=== PATIENT | female | born 1970 | race Two or more races ===

== ENCOUNTER 2025-01-07 05:48 | Emergency (ER) | payer MEDICAID, OTHER ==
[~2025-01-07] VITALS: Ht 167.6 cm; Wt 94.1 kg
--- NOTE | 2025-01-07 08:11 | ED.PDOC ---
GI ASSESSMENT HPI Comments 54 year old female presents to the ED with chief complaint of abdominal pain. Patient reports that she has been experiencing epigastric abdominal pain with associated nausea and bloating since yesterday afternoon after eating beef stew. Patient denies any vomiting, diarrhea, dysuria, chest pain, fever, or chills. Chief Complaint: Abdominal Pain Time Seen by MD: 08:11 Primary Care Provider: Dr. 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 Family History Family History: Reviewed,noncontributory to illness Social History Smoker: Non-Smoker Alcohol: Denies ETOH Use Drugs: Denies Drug Use Lives In: Home Constitutional: denies: chills, diaphoresis, fatigue, fever, malaise, sweats, weakness, others EENTM: denies: blurred vision, double vision, ear bleeding, ear discharge, ear drainage, ear pain, ear ringing, eye pain, eye redness, hearing loss, mouth pain, mouth swelling, nasal discharge, nose bleeding, nose congestion, nose pain, photophobia, tearing, throat pain, throat swelling, voice changes, others Respiratory: denies: cough, hemoptysis, orthopnea, SOB at rest, shortness of breath, SOB with excertion, stridor, wheezing, others Cardiovascular: denies: chest pain, dizzy spells, diaphoresis, Dyspnea on exertion, edema, irregular heart beat, left arm pain, lightheadedness, palpitations, PND, syncope, others Gastrointestinal: reports: abdominal pain, nausea; denies: abdomen distended, blood streaked bowels, constipated, diarrhea, dysphagia, difficulty swallowing, hematemesis, melena, poor appetite, poor fluid intake, rectal bleeding, rectal pain, vomiting, others Genitourinary: denies: abnormal vagina bleeding, burning, dyspareunia, dysuria, flank pain, frequency, hematuria, incontinence, pain, , vagina discharge, urgency, others Neurological: denies: dizziness, fainting, headache, left sided numbness, left sided weakness, numbness, paresthesia, pre-existing deficit, right sided numbness, right sided weakness, seizure, speech problems, tingling, tremors, weakness, others Musculoskeletal: denies: back pain, gout, joint pain, joint swelling, muscle pain, muscle stiffness, neck pain, others Integumetry: denies: bruises, change in color, change in hair/nails, dryness, laceration, lesions, lumps, rash, wounds, others Allergic/Immunocompromised: denies: Difficulty Healing, Frequent Infections, Hives, Itching, others Hematologic/Lymphatic: denies: anemia, blood clots, easy bleeding, easy bruising, swollen glands, others Endocrine: denies: excessive hunger, excessive sweating, excessive thirst, excessive urination, flushing, intolerance to cold, intolerance to heat, unexplained weight gain, unexplained weight loss, others Psychiatric: denies: anxiety, bipolar disorder, depression, hopeless, panic disorder, schizophrenia, sleepless, suicidal, others All Other Systems: Reviewed and Negative Physical Exam General Appearance: Moderate Distress, Obese HEENT: Normal ENT Inspection, PERRL/EOMI Neck: Full Range of Motion, Non-Tender, Normal, Normal Inspection Respiratory: Chest Non-Tender, Lungs Clear, No Accessory Muscle Use, No Respiratory Distress, Normal Breath Sounds Cardiovascular: No Edema, No JVD, No Murmur, No Gallop, Normal Peripheral Pulses, Regular Rate/Rhythm Breast Exam: Deferred Gastrointestinal: Epigastric, No Organomegaly, No Pulsatile Mass, Normal Bowel Sounds, RUQ, Soft, Tenderness Genitalia: Deferred Pelvic: Deferred Rectal: Deferred Extremities: No calf tenderness, Normal capillary refill, Normal inspection, Normal range of motion, Non-tender, No pedal edema Musculoskeletal : Apperance: Normal Neurologic: Alert, 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 Was a procedure done?: No GI differential Dx Differential Diagnosis: Appendicitis, Bowel Obstruction, Cholecystitis, Diverticular disease, Gastritis/PUD, Inflammatory BD, Pancreatitis, UTI, Dehydration, Diabetes/ DKA, Drug toxicity, Electrolyte Imbalance, Anemia X-Ray, Labs, Meds, VS Vital Signs Date Time Temp Pulse Resp B/P (MAP) Pulse Ox O2 Delivery O2 Flow Rate FiO2 01/07/25 08:17 71 20 96 Room Air* 0 21 01/07/25 08:17 98.5 71 20 117/63 (81) 96 98.5 01/07/25 05:57 97.5 77 16 130/78 (95) 95 97.5 Lab Test 01/07/25 08:24 01/07/25 05:57 Range/Units White Blood Count 6.1 4.4-10.8 10^3/uL Red Blood Count 5.02 4.0-5.20 10^6/uL Hemoglobin 14.5 12.2-16.2 g/dL Hematocrit 43.7 36.0-46.0 % Mean Corpuscular Volume 87.2 80.0-100.0 fL Mean Corpuscular Hemoglobin 28.9 28.0-32.0 pg Mean Corpuscular Hemoglobin Concent 33.1 32.0-36.0 g/dL Red Cell Distribution Width 13.2 11.8-14.3 % Platelet Count 237 140-450 10^3/uL Mean Platelet Volume 7.4 6.9-10.8 fL Neutrophils (%) (Auto) 67.6 37.0-80.0 % Lymphocytes (%) (Auto) 24.8 10.0-50.0 % Monocytes (%) (Auto) 4.7 0.0-12.0 % Eosinophils (%) (Auto) 1.8 0.0-7.0 % Basophils (%) (Auto) 1.1 0.0-2.0 % Neutrophils # (Auto) 4.2 1.6-8.6 10 ^3/uL Lymphocytes # (Auto) 1.5 0.4-5.4 10 ^3/uL Monocytes # (Auto) 0.3 0-1.3 10 ^3/uL Eosinophils # (Auto) 0.1 0-0.8 10 ^3/uL Basophils # (Auto) 0.1 0-0.2 10 ^3/uL Nucleated Red Blood Cells 0.1 % Sodium Level 139 136-145 mmol/L Potassium Level 4.7 3.5-5.1 mmol/L Chloride Level 106 98-107 mmol/L Carbon Dioxide Level 25 20-31 mmol/L Anion Gap 8 5-15 Blood Urea Nitrogen 12 9-23 mg/dL Creatinine 0.67 0.550-1.02 mg/dL Glomerular Filtration Rate Calc 103 >90 mL/min BUN/Creatinine Ratio 17.9 10.0-20.0 Serum Glucose 118 H 74-106 mg/dL Calcium Level 9.8 8.7-10.4 mg/dL Magnesium Level 2.1 1.6-2.6 mg/dL Total Bilirubin 0.4 0.2-1.0 mg/dL Aspartate Amino Transferase (AST) 35 13-40 U/L Alanine Aminotransferase (ALT) 55 H 7-40 U/L Alkaline Phosphatase 108 46-116 U/L Total Protein 7.6 5.7-8.2 g/dL Albumin 4.8 3.2-4.8 g/dL Lipase 43 12-53 U/L Urine Color Light-yellow Yellow Urine Clarity Clear Clear Urine pH 5.0 5.0-9.0 Urine Specific [place] 1.026 1.001-1.035 Urine Protein Negative Negative Urine Ketones Negative Negative Urine Blood Negative Negative /uL Urine Nitrite Negative Negative Urine Bilirubin Negative Negative Urine Urobilinogen Normal Negative mg/dL Urine Leukocyte Esterase Negative Negative /uL Urine RBC 2 0 - 4 /hpf Urine Microscopic WBC 3 0-5 /HPF Urine Squamous Epithelial Cells Few <5 /hpf Urine Calcium Oxalate Crystals Few None Seen Urine Bacteria None seen None Seen /hpf Urine Glucose Normal Normal mg/dL Current Medications Medications (Trade) Dose Ordered Sig/Stefani Route Start Time Stop Time Status Last Admin Metoclopramide HCl (Reglan Injection) 10 mg ONCE ONCE IV 01/07/25 08:15 01/07/25 08:16 DC 01/07/25 08:45 Sodium Chloride 1,000 ml @ 150 mls/hr Q6H40M ONCE IV 01/07/25 08:15 01/07/25 14:54 01/07/25 08:44 Ketorolac Tromethamine (Toradol Injection) 30 mg ONCE ONCE IV 01/07/25 08:15 01/07/25 08:16 DC 01/07/25 08:44 Abd US: FINDINGS: The liver demonstrates increased echotexture without focal mass lesions. Liver measures 15.5 cm in length. There is hepatopedal color doppler flow in the main portal vein. There is no intrahepatic biliary ductal dilatation. Multiple gallstones. Gallbladder wall is normal in thickness measuring 0.2 cm. No pericholecystic free fluid. Negative sonographic miranda's sign. The common bile duct measures 0.4 cm. The right kidney measures 10.1 cm. The right kidney is normal in contour, size, and shape. The echogenicity is normal. There is no hydronephrosis. The pancreas is not well visualized due to overlying bowel gas. Visualized portions of the aorta and inferior vena cava are unremarkable. No evidence of ascites. IMPRESSION: 1. Gallstones. No sonographic evidence of acute cholecystitis. 2. Hepatic steatosis. X-Ray, Labs, Meds, VS Comment Course in the emergency department patient came in complaining of abdominal pain mostly right upper quadrant and epigastrium Patient with a history of fatty liver and past surgery of hip hysterectomy CBC normal Urine negative Magnesium 2.1 Lipase 43 Ultrasound abdomen shows cholelithiasis without cholecystitis Patient will be discharged home to follow up with her PCP Time of 1ST Reevaluation: 09:10 Reevaluation 1ST: Improved Patient Education/Counseling: Diagnosis, Treatment Family Education/Counseling: No Family Present Departure 1 Departure Time of Disposition: 10:17 Impression: Primary Impression: Cholelithiasis Qualified Codes: K80.20 - Calculus of gallbladder without cholecystitis without obstruction Additional Impression: Biliary colic symptom Disposition: HOME / SELF CARE / HOMELESS Condition: Fair Additional Instructions: Push fluids and follow up with your PCP e-Prescriptions Omeprazole (Gnp Omeprazole) 20 Mg Tab 1 TAB PO BID for 10 Days, #20 TAB 1 Refill Prov: STEPHAN SOSA MD 01/07/25 Metoclopramide Hcl (Reglan) 10 Mg Tab 10 MG PO BID for 10 Days, #20 TAB Prov: STEPHAN SOSA MD 01/07/25 Discharged With: Self Critical Care Note Critical Care Time?: No Stability Stability form required: No Heart Score Heart Score: Heart Score Response (Comments) Value History N/A 0 EKG N/A 0 Age 45-64 1 Risk Factors No known risk factors 0 Troponin N/A 0 Total 1 I personally scribed for STEPHAN SOSA MD ([email or web address]) on 01/07/25 at 08:11. Electronically submitted by Honorio Ventura ([email or web address]). I personally scribed for STEPHAN SOSA MD ([email or web address]) on 01/07/25 at 09:24. Electronically submitted by Honorio Ventura ([email or web address]). STEPHAN SOSA MD Jan 07, 2025 08:11
[2025-01-07 08:17] VITALS: PULSE 71; RESP 20; O2SAT 96
[2025-01-07 08:19] LABS: Urine Bacteria None Seen /hpf (None Seen)
[2025-01-07 08:37] LABS: Basophils # (auto) 0.1 10 ^3/uL (0-0.2); Basophils % (auto) 1.1 % (0.0-2.0); Eosinophils # (auto) 0.1 10 ^3/uL (0-0.8); Eosinophils % (auto) 1.8 % (0.0-7.0); Hematocrit 43.7 % (36.0-46.0); Hemoglobin 14.5 g/dL (12.2-16.2); Lymphocytes # (auto) 1.5 10 ^3/uL (0.4-5.4); Lymphocytes % (auto) 24.8 % (10.0-50.0); Mean Corpuscular Hemoglobin 28.9 pg (28.0-32.0); Mean Corpuscular Hgb Conc. 33.1 g/dL (32.0-36.0); Mean Corpuscular Volume 87.2 fL (80.0-100.0); Monocytes # (auto) 0.3 10 ^3/uL (0-1.3); Monocytes % (auto) 4.7 % (0.0-12.0); Neutrophils # (auto) 4.2 10 ^3/uL (1.6-8.6); Neutrophils % (auto) 67.6 % (37.0-80.0); Nucleated Red Blood Cells % 0.1 %; Platelet Count (auto) 237 10^3/uL (140-450); Red Blood Cells 5.02 10^6/uL (4.0-5.20); Red Cell Distribution Width 13.2 % (11.8-14.3); White Blood Cell 6.1 10^3/uL (4.4-10.8)
[2025-01-07 08:43] LABS: Urine Blood Negative /uL (Negative); Urine Clarity Clear (Clear); Urine Color Light-Yellow (Yellow); Urine Protein, UAD Negative (Negative); Urine Specific Gravity 1.026 (1.001-1.035); Urine Squamous Epithelial Cell FEW /hpf (<5); Urine Urobilinogen Normal (Negative); Urine WBC 3 /HPF (0-5)
[2025-01-07] MEDS: KETOROLAC TROMETH 30 MG/ML 1ML VIAL IV ONE (08:44)
[2025-01-07] MEDS: SODIUM CHLORIDE 0.9% 1,000 ML IV ONE (08:44)
[2025-01-07] MEDS: METOCLOPRAMIDE HCL 5MG/ml INJ 2ml VIAL IV ONE (08:45)
[2025-01-07 08:54] LABS: Alkaline Phosphatase 108 U/L (46-116); Anion Gap 8 (5-15); Aspartate Aminotransferase 35 U/L (13-40); BUN/Creatinine Ratio 17.9 (10.0-20.0); Bilirubin, Total 0.4 mg/dL (0.2-1.0); Blood Urea Nitrogen 12 mg/dL (9-23); Calcium 9.8 mg/dL (8.7-10.4); Carbon Dioxide 25 mmol/L (20-31); Chloride 106 mmol/L (98-107); Lipase 43 U/L (12-53); Magnesium 2.1 mg/dL (1.6-2.6); Potassium 4.7 mmol/L (3.5-5.1); Sodium 139 mmol/L (136-145); Total Protein 7.6 g/dL (5.7-8.2)
[2025-01-07 08:55] LABS: Alanine Aminotransferase 55 U/L (7-40); Albumin 4.8 g/dL (3.2-4.8); Glucose 118 mg/dL (74-106)
--- NOTE | 2025-01-07 09:20 | DVH ---
EXAM: US GALLBLADDER INDICATION: Acute abdominal pain TECHNIQUE: Multiple real-time sonographic images were obtained of the right upper quadrant. COMPARISON: None FINDINGS: The liver demonstrates increased echotexture without focal mass lesions. Liver measures 15. 5 cm in length. There is hepatopedal color doppler flow in the main portal vein. There is no intrahep atic biliary ductal dilatation. Multiple gallstones. Gallbladder wall is normal in thickness measuring 0.2 cm. No pericholecystic laura e fluid. Negative sonographic miranda's sign. The common bile duct measures 0.4 cm. The right kidney measures 10.1 cm. The right kidney is normal in contour, size, and shape. The ech ogenicity is normal. There is no hydronephrosis. The pancreas is not well visualized due to overlying bowel gas. Visualized portions of the aorta and inferior vena cava are unremarkable. No evidence of ascites. IMPRESSION: 1. Gallstones. No sonographic evidence of acute cholecystitis. 2. Hepatic steatosis.
[2025-01-07] MEDS ORDERED: METO-281 PO (10:23)
[2025-01-07] MEDS ORDERED: OMEP20TA PO (10:23)
[2025-01-07 10:32] VITALS: BP 111/59; PULSE 75; RESP 16; TEMP 98; O2SAT 97
== END 2025-01-07 10:47 | disposition home or self-care (01) ==
LOC: ER 05:48
DX: K80.20 Calculus of gallbladder without cholecystitis without obstruction (principal); K80.50 Calculus of bile duct without cholangitis or cholecystitis without obstruction; K76.0 Fatty (change of) liver, not elsewhere classified; Z90.710 Acquired absence of both cervix and uterus; Z79.899 Other long term (current) drug therapy
CPT/HCPCS: 36415; 76705; 80053; 81001; 83690; 83735; 85025; 96361; 96374; 96375; 99285; J1885; J2765; J7030

== ENCOUNTER 2025-05-20 01:02 | Inpatient (IN) | payer MEDICAID ==
[~2025-05-20] VITALS: Ht 162.6 cm; Wt 91.6 kg
[~2025-05-20 01:02] MED LIST: METO-281 PO; OMEP20TA PO
--- NOTE | 2025-05-20 01:25 | ED.PDOC ---
GI ASSESSMENT HPI Comments 54 year old female presents to the ED with a chief complaint of abdominal pain onset 1 day. Patient states she has been experiencing RUQ pain for the past day, took ibuprofen with no improvement of symptoms. Patient has a PMHx gallstones, has surgery scheduled in [place] on 06/05/25. Denies fever, chills, nausea, vomiting, diarrhea, headache, dizziness, hematemesis, dysuria, hematuria. No other symptoms or modifying factors present at this time. Chief Complaint: Abdominal Pain Time Seen by MD: 01:15 Primary Care Provider: Dr. Engle Reviewed Notes: Medications, Allergies Allergies: Coded Allergies: NO KNOWN ALLERGIES (Unverified , 01/07/25) Home Meds Active Scripts Omeprazole (Gnp Omeprazole) 20 Mg Tab, 1 TAB PO BID for 10 Days, #20 TAB 1 Refill Prov:STEPHAN SOSA MD 01/07/25 Metoclopramide Hcl (Reglan) 10 Mg Tab, 10 MG PO BID for 10 Days, #20 TAB Prov:STEPHAN SOSA MD 01/07/25 Information Source: Patient Mode of Arrival: Ambulatory Timing: Days Duration: Since onset Prehospital treatment: Pain Meds Quality: Sharp Vomitus: None Severity: Moderate Recent: None Recent Hx of: None Pain Location: RUQ Modifying Factors: Nothing Associated sign and symptoms: Abdominal Pain Past Medical History PAST MEDICAL HISTORY: Gallstones Surgical History: 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 Family History Family History: Reviewed,noncontributory to illness Social History Smoker: Non-Smoker Alcohol: Denies ETOH Use Drugs: Denies Drug Use Lives In: Home Constitutional: denies: chills, diaphoresis, fatigue, fever, malaise, sweats, weakness, others EENTM: denies: blurred vision, double vision, ear bleeding, ear discharge, ear drainage, ear pain, ear ringing, eye pain, eye redness, hearing loss, mouth pain, mouth swelling, nasal discharge, nose bleeding, nose congestion, nose pain, photophobia, tearing, throat pain, throat swelling, voice changes, others Respiratory: denies: cough, hemoptysis, orthopnea, SOB at rest, shortness of breath, SOB with excertion, stridor, wheezing, others Cardiovascular: denies: chest pain, dizzy spells, diaphoresis, Dyspnea on exertion, edema, irregular heart beat, left arm pain, lightheadedness, palpitations, PND, syncope, others Gastrointestinal: reports: abdominal pain (RUQ); denies: abdomen distended, blood streaked bowels, constipated, diarrhea, dysphagia, difficulty swallowing, hematemesis, melena, nausea, poor appetite, poor fluid intake, rectal bleeding, rectal pain, vomiting, others Genitourinary: denies: abnormal vagina bleeding, burning, dyspareunia, dysuria, flank pain, frequency, hematuria, incontinence, pain, , vagina discharge, urgency, others Neurological: denies: dizziness, fainting, headache, left sided numbness, left sided weakness, numbness, paresthesia, pre-existing deficit, right sided numbness, right sided weakness, seizure, speech problems, tingling, tremors, weakness, others Musculoskeletal: denies: back pain, gout, joint pain, joint swelling, muscle pain, muscle stiffness, neck pain, others Integumetry: denies: bruises, change in color, change in hair/nails, dryness, laceration, lesions, lumps, rash, wounds, others Allergic/Immunocompromised: denies: Difficulty Healing, Frequent Infections, Hives, Itching, others Hematologic/Lymphatic: denies: anemia, blood clots, easy bleeding, easy bruising, swollen glands, others Endocrine: denies: excessive hunger, excessive sweating, excessive thirst, excessive urination, flushing, intolerance to cold, intolerance to heat, unexplained weight gain, unexplained weight loss, others Psychiatric: denies: anxiety, bipolar disorder, depression, hopeless, panic disorder, schizophrenia, sleepless, suicidal, others All Other Systems: Reviewed and Negative Physical Exam General Appearance: Normal HEENT: Normal ENT Inspection, Pharynx Normal, TMs Normal Neck: Full Range of Motion, Non-Tender, Normal, Normal Inspection Respiratory: Chest Non-Tender, Lungs Clear, No Accessory Muscle Use, No Respiratory Distress, Normal Breath Sounds Cardiovascular: No Edema, No JVD, No Murmur, No Gallop, Normal Peripheral Pulses, Regular Rate/Rhythm Breast Exam: Deferred Gastrointestinal: No Organomegaly, Normal Bowel Sounds, Tenderness (RUQ) Genitalia: Deferred Pelvic: Deferred Rectal: Deferred Extremities: No calf tenderness, Normal capillary refill, Normal inspection, Normal range of motion, Non-tender, No pedal edema Musculoskeletal : Apperance: Normal Neurologic: Alert, 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 Was a procedure done?: No GI differential Dx Differential Diagnosis: Appendicitis, Cholecystitis, Gastritis/PUD, Gastroenteritis, Pancreatitis, Urolithiasis, Dehydration, Food Poisoning X-Ray, Labs, Meds, VS Vital Signs Date Time Temp Pulse Resp B/P (MAP) Pulse Ox O2 Delivery O2 Flow Rate FiO2 05/20/25 04:34 64 16 158/88 05/20/25 04:07 97.7 64 16 158/88 (111) 96 97.7 05/20/25 01:03 97.5 66 66 158/84 98 97.5 Lab Test 05/20/25 01:27 Range/Units White Blood Count 6.1 4.4-10.8 10^3/uL Red Blood Count 4.90 4.0-5.20 10^6/uL Hemoglobin 14.6 12.2-16.2 g/dL Hematocrit 44.2 36.0-46.0 % Mean Corpuscular Volume 90.1 80.0-100.0 fL Mean Corpuscular Hemoglobin 29.8 28.0-32.0 pg Mean Corpuscular Hemoglobin Concent 33.1 32.0-36.0 g/dL Red Cell Distribution Width 13.6 11.8-14.3 % Platelet Count 255 140-450 10^3/uL Mean Platelet Volume 8.2 6.9-10.8 fL Neutrophils (%) (Auto) 45.9 37.0-80.0 % Lymphocytes (%) (Auto) 45.8 10.0-50.0 % Monocytes (%) (Auto) 4.6 0.0-12.0 % Eosinophils (%) (Auto) 2.6 0.0-7.0 % Basophils (%) (Auto) 1.1 0.0-2.0 % Neutrophils # (Auto) 2.8 1.6-8.6 10 ^3/uL Lymphocytes # (Auto) 2.8 0.4-5.4 10 ^3/uL Monocytes # (Auto) 0.3 0-1.3 10 ^3/uL Eosinophils # (Auto) 0.2 0-0.8 10 ^3/uL Basophils # (Auto) 0.1 0-0.2 10 ^3/uL Nucleated Red Blood Cells 0.2 % Sodium Level 141 136-145 mmol/L Potassium Level 4.4 3.5-5.1 mmol/L Chloride Level 109 H 98-107 mmol/L Carbon Dioxide Level 20 20-31 mmol/L Anion Gap 12 5-15 Blood Urea Nitrogen 6 L 9-23 mg/dL Creatinine 0.76 0.550-1.02 mg/dL Glomerular Filtration Rate Calc 92 >90 mL/min BUN/Creatinine Ratio 7.9 L 10.0-20.0 Serum Glucose 133 H 74-106 mg/dL Calcium Level 9.5 8.7-10.4 mg/dL Total Bilirubin 0.4 0.2-1.0 mg/dL Aspartate Amino Transferase (AST) 34 13-40 U/L Alanine Aminotransferase (ALT) 39 7-40 U/L Alkaline Phosphatase 108 46-116 U/L Total Protein 8.0 5.7-8.2 g/dL Albumin 4.9 H 3.2-4.8 g/dL Lipase 40 12-53 U/L Current Medications Medications (Trade) Dose Ordered Sig/Stefani Route Start Time Stop Time Status Last Admin Sodium Chloride 1,000 ml @ 1,000 mls/hr Q1H ONCE IV 05/20/25 01:15 05/20/25 02:14 DC 05/20/25 04:34 Morphine Sulfate 4 mg ONCE ONCE IV 05/20/25 01:15 05/20/25 01:17 DC 05/20/25 04:34 Ondansetron HCl (Zofran) 4 mg ONCE ONCE IV 05/20/25 01:15 05/20/25 01:17 DC 05/20/25 04:34 Time of 1ST Reevaluation: 01:45 Reevaluation 1ST: Unchanged Patient Education/Counseling: Diagnosis, Treatment, Prognosis Family Education/Counseling: No Family Present SEPSIS Sepsis Screen Date sepsis recognized/suspect: May 20, 2025 Time Sepsis recognized/suspect: 010 Recent Procedure: No On Antibiotic Therapy: No Respiratory Rate >20: No Heart Rate >90: No Temp<36 C (96.8 F) or >38.3 C: No SBP <90 or MAP <65 mmHG: No New Acute Mental Status Change: No Is the patient on CPAP, BIPAP,: No Physician Orders Urinalysis (05/20/25 01:15) Ct Ab Pel With Iv Con Only (05/20/25 01:15) Morphine Sulfate Injection (05/20/25 04:45) Ondansetron Hcl (Zofran) (05/20/25 04:45) Vital Signs Date Time Temp Pulse Resp B/P (MAP) Pulse Ox O2 Delivery O2 Flow Rate FiO2 05/20/25 04:34 64 16 158/88 05/20/25 04:07 97.7 64 16 158/88 (111) 96 97.7 05/20/25 01:03 97.5 66 66 158/84 98 97.5 Laboratory Tests Test 05/20/25 01:27 White Blood Count 6.1 10^3/uL (4.4-10.8) Medications Medications Dose Ordered Sig/Stefani Route Start Time Stop Time Status Last Admin Dose Admin Morphine Sulfate 4 mg ONCE ONCE IV 05/20/25 01:15 05/20/25 01:17 DC 05/20/25 04:34 Ondansetron HCl 4 mg ONCE ONCE IV 05/20/25 01:15 05/20/25 01:17 DC 05/20/25 04:34 Sodium Chloride 1,000 ml @ 1,000 mls/hr Q1H ONCE IV 05/20/25 01:15 05/20/25 02:14 DC 05/20/25 04:34 Departure 1 Departure Time of Disposition: 04:46 (Patient presented with abdominal pain that was concerning for possible appendicits, gastritis, cholecystitis, colitis, gastroenteritis, sbo, or orther possible surgical emergency. Data: 1. I ordered and reviewed the result of at least 3 labs including a CBC, BMP, and Urinalysis. 2. I independently interpreted the following tests: CT Abdoment and Pelvis is concerning for distended gallbladder and colitis .Risk:This patient has a high risk of morbidity due to further diagnostic testing or treatment and may suffer from an acute abdominal process disorder. Workup reveals likely biliary colic and intractable abdominal pain and patient should be admitted for further workup. and possible expert consultation. ) Impression: Primary Impression: Biliary colic symptom Additional Impression: Intractable abdominal pain Disposition: ADMITTED INPATIENT Admit to: Med Surg Condition: Serious Critical Care Note Critical Care Time?: Yes Critical care comment: Intractable abdominal pain Authorized and Performed by: Maki Oconnor MD Total critical care time: Approximately 38 minutes Due to a high probability of clinically significant, life threatening deterioration, the patient required my highest level of preparedness to intervene emergently and I personally spent this critical care time directly and personally managing the patient. This critical care time included obtaining a history; examining the patient; pulse oximetry; ordering and review of studies; arranging urgent treatment with development of a management plan; evaluation of patient's response to treatment; frequent reassessment; and, discussions with other providers. This critical care time was performed to assess and manage the high probability of imminent, life-threatening deterioration that could result in multi-organ failure. It was exclusive of separately billable procedures and treating other patients and teaching time. Please see my other sections and the rest of the note for further information on patient assessment and treatment. Stability Stability form required: No I personally scribed for MAKI OCONNOR MD ([email or web address]) on 05/20/25 at 01:25. Electronically submitted by Skylar Marquez ([email or web address]). MAKI OCONNOR MD May 20, 2025 01:25
[2025-05-20 01:38] LABS: Hematocrit 44.2 % (36.0-46.0); Hemoglobin 14.6 g/dL (12.2-16.2); Mean Corpuscular Hemoglobin 29.8 pg (28.0-32.0); Mean Corpuscular Volume 90.1 fL (80.0-100.0); Nucleated Red Blood Cells % 0.2 %
[2025-05-20 02:01] LABS: Alanine Aminotransferase 39 U/L (7-40); Alkaline Phosphatase 108 U/L (46-116); Anion Gap 12 (5-15); BUN/Creatinine Ratio 7.9 (10.0-20.0); Bilirubin, Total 0.4 mg/dL (0.2-1.0); Calcium 9.5 mg/dL (8.7-10.4); Carbon Dioxide 20 mmol/L (20-31); Lipase 40 U/L (12-53); Potassium 4.4 mmol/L (3.5-5.1); Sodium 141 mmol/L (136-145); Total Protein 8.0 g/dL (5.7-8.2)
[2025-05-20 02:04] LABS: Albumin 4.9 g/dL (3.2-4.8); Blood Urea Nitrogen 6 mg/dL (9-23); Chloride 109 mmol/L (98-107); Glucose 133 mg/dL (74-106)
[2025-05-20] MEDS: IOHEXOL 300 MG/ML 100ML BOTTLE IJ ONE (04:33)
[2025-05-20] MEDS: ONDANSETRON HCL 4 MG/2 ML VIAL IV ONE ×2 (04:34→06:03)
[2025-05-20] MEDS: MORPHINE SULFATE 4 MG/ML SYR/VIAL IV ONE ×2 (04:34→06:03)
[2025-05-20] MEDS: SODIUM CHLORIDE 0.9% 1,000 ML IV ONE (04:34)
--- NOTE | 2025-05-20 04:39 | DVH ---
Exam: CT CT AB PEL WITH IV CON ONLY History: ruq pain Comparison Study: Right upper quadrant ultrasound performed 01/07/2025 Technique: Multidetector spiral CT of the abdomen was performed from lung bases to pubic symphysis. A xial imaging was performed with intravenous contrast following the uneventful administration of 95 ml Omnipaque 300. Coronal and sagittal multiplanar reformats were obtained from the axial data set by maikel roberson technologist. Radiation Dose : 1. Abdomen/Pelvis: CTDIvol 22.9 mGy, DLP 1213.96 mGy*cm. Findings: Lung Bases: Lung bases are clear. Visualized portions of the heart and pericardium are unremarkable. Liver: The liver is normal in size. No focal lesions. Diffusely hypoattenuating liver parenchyma con sistent with hepatic steatosis. Gallbladder and Biliary Tree: The gallbladder is slightly distended. No intrahepatic or extrahepatic biliary ductal dilatation. Spleen: Unremarkable Pancreas: The pancreas enhances normally and there are no focal lesions. The main pancreatic duct is not dilated Adrenal Glands: Unremarkable Kidneys: Kidneys enhance symmetrically. No calculi or hydronephrosis. GI tract: The stomach is grossly normal in appearance. Nonspecific fluid-filled small bowel loops. Mild mucosal thickening of the colon. No bowel obstruction. No acute appendicitis. Peritoneum/mesentery/retroperitoneum. No evidence of free intraperitoneal air. No ascites. No evidenc e of suspicious lymphadenopathy. Abdominal Wall: Unremarkable. Vasculature: Abdominal aorta and main branches are unremarkable. Normal vascular enhancement. Urinary Bladder: Grossly unremarkable for degree of distention. Pelvic Organs: Unremarkable Musculoskeletal: No aggressive focal bony lesions, acute fractures or dislocation. Intervertebral dis c degeneration at L5-S1. IMPRESSION: 1. Acute enterocolitis. 2. Hepatic steatosis. 3. Slightly distended gallbladder without inflammatory changes. Right upper quadrant ultrasound earnest mmended for further evaluation.
[2025-05-20] MEDS ORDERED: DOCUSATE SOD 100 MG CAP PO PRN (08:00)
[2025-05-20] MEDS: SODIUM CHLORIDE 0.9% 1,000 ML IV SCH (08:00)
[2025-05-20] MEDS ORDERED: ONDANSETRON HCL 4 MG/2 ML VIAL IV PRN (08:00)
[2025-05-20] MEDS ORDERED: ACETAMINOPHEN 325 MG TAB PO PRN (08:00)
--- NOTE | 2025-05-20 08:06 | DVHHP2 ---
History of Present Illness Reason for Visit: Abdominal pain History of Present Illness Esthela Lemons is a 54-year-old female with past medical history of gallstones, who came to the hospital due to abdominal pain. Patient is aware she has gallstones. She has been following outpatient for her care and has surgery scheduled on 06/05/2025. However, she came to the hospital due to the pain becoming too severe along with intractable nausea and vomiting. Patient states this time the pain, nausea, and vomiting began yesterday about 1500. She last ate yesterday about 1500. GI: Other (Gallstones) Past Surgical History: Hysterectomy Smoke: No ALCOHOL: none Drugs: None Lives: with Family Domestic Violence: Neg Review of Systems Constitutional: No: Fever, Chills, Sweats, Weakness, Malaise, Other Eyes: No: Pain, Vision change, Conjunctivae inflammation, Eyelid inflammation, Other, Redness ENT: No: Ear pain, Ear discharge, Nose pain, Nose discharge, Nose congestion, Mouth pain, Mouth swelling, Throat pain, Throat swelling, Other Respiratory: No: Cough, Dry, Shortness of breath, SOB with excertion, Wheezing, Hemoptysis, Pleuritic Pain, Sputum, Wheezing, Other Cardiovascular: No: Chest Pain, Palpitations, Orthopnea, Paroxysmal Noc. Dyspnea, Edema, Lt Headedness, Other Gastrointestinal: Nausea, Vomiting, Abdominal Pain; No: Diarrhea, Constipation, Melena, Hematochezia, Other Genitourinary: No Dysuria, No Frequency, No Incontinence, No Hematuria, No Retention, No Other Musculoskeletal: No: other, neck pain, shoulder pain, arm pain, back pain, hand pain, leg pain, foot pain Skin: No: Rash, Lesions, Jaundice, Bruising, Other Neurological: No: Weakness, Numbness, Incoordination, Change in speech, Confusion, Seizures, Other Allergies: Coded Allergies: NO KNOWN ALLERGIES (Unverified , 01/07/25) Exam Vital Signs Vital Signs Date Time Temp Pulse Resp B/P (MAP) Pulse Ox O2 Delivery O2 Flow Rate FiO2 05/20/25 06:57 62 18 148/78 05/20/25 04:07 97.7 96 97.7 General Appearance: Alert, Oriented X3, Cooperative, moderate distress HEENT: Atraumatic, PERRLA, Other (Mucous membr dry) Respiratory: Clear to auscultation, Normal air movement Cardiovascular: Regular rate, Normal S1, Normal S2 Abdominal: Normal bowel sounds, Soft, Other (epigastric pain that radiates to RUQ) Extremities: No clubbing, No cyanosis, No edema, Normal pulses, No tenderness/swelling Skin: No rashes, No breakdown, No significant lesion Neuro: Normal gait, Normal speech, Strength at 5/5 X4 ext, Normal tone Psych/Mental Status: Mental status NL, Mood NL Labs/Xrays Labs Test 05/20/25 01:27 Range/Units White Blood Count 6.1 4.4-10.8 10^3/uL Red Blood Count 4.90 4.0-5.20 10^6/uL Hemoglobin 14.6 12.2-16.2 g/dL Hematocrit 44.2 36.0-46.0 % Mean Corpuscular Volume 90.1 80.0-100.0 fL Mean Corpuscular Hemoglobin 29.8 28.0-32.0 pg Mean Corpuscular Hemoglobin Concent 33.1 32.0-36.0 g/dL Red Cell Distribution Width 13.6 11.8-14.3 % Platelet Count 255 140-450 10^3/uL Mean Platelet Volume 8.2 6.9-10.8 fL Neutrophils (%) (Auto) 45.9 37.0-80.0 % Lymphocytes (%) (Auto) 45.8 10.0-50.0 % Monocytes (%) (Auto) 4.6 0.0-12.0 % Eosinophils (%) (Auto) 2.6 0.0-7.0 % Basophils (%) (Auto) 1.1 0.0-2.0 % Neutrophils # (Auto) 2.8 1.6-8.6 10 ^3/uL Lymphocytes # (Auto) 2.8 0.4-5.4 10 ^3/uL Monocytes # (Auto) 0.3 0-1.3 10 ^3/uL Eosinophils # (Auto) 0.2 0-0.8 10 ^3/uL Basophils # (Auto) 0.1 0-0.2 10 ^3/uL Nucleated Red Blood Cells 0.2 % Sodium Level 141 136-145 mmol/L Potassium Level 4.4 3.5-5.1 mmol/L Chloride Level 109 H 98-107 mmol/L Carbon Dioxide Level 20 20-31 mmol/L Anion Gap 12 5-15 Blood Urea Nitrogen 6 L 9-23 mg/dL Creatinine 0.76 0.550-1.02 mg/dL Glomerular Filtration Rate Calc 92 >90 mL/min BUN/Creatinine Ratio 7.9 L 10.0-20.0 Serum Glucose 133 H 74-106 mg/dL Calcium Level 9.5 8.7-10.4 mg/dL Total Bilirubin 0.4 0.2-1.0 mg/dL Aspartate Amino Transferase (AST) 34 13-40 U/L Alanine Aminotransferase (ALT) 39 7-40 U/L Alkaline Phosphatase 108 46-116 U/L Total Protein 8.0 5.7-8.2 g/dL Albumin 4.9 H 3.2-4.8 g/dL Lipase 40 12-53 U/L Exam: CT CT AB PEL WITH IV CON ONLY History: ruq pain Comparison Study: Right upper quadrant ultrasound performed 01/07/2025 Technique: Multidetector spiral CT of the abdomen was performed from lung bases to pubic symphysis. Axial imaging was performed with intravenous contrast following the uneventful administration of 95 ml Omnipaque 300. Coronal and sagittal multiplanar reformats were obtained from the axial data set by the technologist. Radiation Dose : 1. Abdomen/Pelvis: CTDIvol 22.9 mGy, DLP 1213.96 mGy*cm. Findings: Lung Bases: Lung bases are clear. Visualized portions of the heart and pericardium are unremarkable. Liver: The liver is normal in size. No focal lesions. Diffusely hypoattenuating liver parenchyma consistent with hepatic steatosis. Gallbladder and Biliary Tree: The gallbladder is slightly distended. No intrahepatic or extrahepatic biliary ductal dilatation. Spleen: Unremarkable Pancreas: The pancreas enhances normally and there are no focal lesions. The main pancreatic duct is not dilated Adrenal Glands: Unremarkable Kidneys: Kidneys enhance symmetrically. No calculi or hydronephrosis. GI tract: The stomach is grossly normal in appearance. Nonspecific fluid-filled small bowel loops. Mild mucosal thickening of the colon. No bowel obstruction. No acute appendicitis. Peritoneum/mesentery/retroperitoneum. No evidence of free intraperitoneal air. No ascites. No evidence of suspicious lymphadenopathy. Abdominal Wall: Unremarkable. Vasculature: Abdominal aorta and main branches are unremarkable. Normal vascular enhancement. Urinary Bladder: Grossly unremarkable for degree of distention. Pelvic Organs: Unremarkable Musculoskeletal: No aggressive focal bony lesions, acute fractures or dislocation. Intervertebral disc degeneration at L5-S1. IMPRESSION: 1. Acute enterocolitis. 2. Hepatic steatosis. 3. Slightly distended gallbladder without inflammatory changes. Right upper quadrant ultrasound recommended for further evaluation. SEPSIS Sepsis Screen Date sepsis recognized/suspect: May 20, 2025 Time Sepsis recognized/suspect: 010 Recent Procedure: No On Antibiotic Therapy: No Respiratory Rate >20: No Heart Rate >90: No Temp<36 C (96.8 F) or >38.3 C: No SBP <90 or MAP <65 mmHG: No New Acute Mental Status Change: No Is the patient on CPAP, BIPAP,: No Physician Orders Urinalysis (05/20/25 01:15) Ct Ab Pel With Iv Con Only (05/20/25 01:15) * Surgical Consult (05/20/25 ) Gallbladder (05/20/25 07:57) Admit (05/20/25 07:57) Code Status (05/20/25 07:57) 0.9% Ns 1000 Ml (05/20/25 08:00) Hydrocodone-Acet 5/325mg Tab ([place] 5/32 (05/20/25 08:00) Ondansetron Hcl (Zofran) (05/20/25 08:00) Docusate Sodium Capsule (Colace Capsule) (05/20/25 08:00) Vital Signs Date Time Temp Pulse Resp B/P (MAP) Pulse Ox O2 Delivery O2 Flow Rate FiO2 05/20/25 06:57 62 18 148/78 05/20/25 04:34 64 16 158/88 05/20/25 04:07 97.7 64 16 158/88 (111) 96 97.7 05/20/25 01:03 97.5 66 66 158/84 98 97.5 Laboratory Tests Test 05/20/25 01:27 White Blood Count 6.1 10^3/uL (4.4-10.8) Medications Medications Dose Ordered Sig/Stefani Route Start Time Stop Time Status Last Admin Dose Admin Morphine Sulfate 4 mg ONCE ONCE IV 05/20/25 01:15 05/20/25 01:17 DC 05/20/25 04:34 4 MG Ondansetron HCl 4 mg ONCE ONCE IV 05/20/25 01:15 05/20/25 01:17 DC 05/20/25 04:34 4 MG Sodium Chloride 1,000 ml @ 1,000 mls/hr Q1H ONCE IV 05/20/25 01:15 05/20/25 02:14 DC 05/20/25 04:34 1,000 MLS/HR Assessment/Plan Assessment/Plan Assessment: Biliary colic symptom, Intractable abdominal pain, Intractable nausea and vomiting, Hyperglycemia, Pre-Diabetes, Plan: Admit to Med-Surg, Surgical consult, Gallbladder ultrasound, IV hydration, NPO, PT/PTT, A1c, Chest X-ray, Plan discussed with: Patient My Orders Orders - CJ BECERRA Procedure Category Date Status Time Gallbladder US 05/20/25 Verified 07:57 Admit ADMIT 05/20/25 Verified 07:57 Code Status CODE 05/20/25 Verified 07:57 0.9% Ns 1000 Ml PHA 05/20/25 Verified 08:00 Hydrocodone-Acet PHA 05/20/25 Verified 5/325mg Tab ([place] 08:00 Ondansetron Hcl PHA 05/20/25 Verified (Zofran) 08:00 Docusate Sodium PHA 05/20/25 Verified Capsule (Colace 08:00 Date of Service: May 20, 2025 Billing Provider: CJ BECERRA Common Visit Codes: [id number] INP/OBS CARE (MOD) CJ BECERRA May 20, 2025 08:06
--- NOTE | 2025-05-20 08:34 | DVH ---
INDICATION: RUQ pain TECHNIQUE: Multiple real-time sonographic images were obtained of the right upper quadrant. COMPARISON: US GALLBLADDER on DOS: 01/07/25 FINDINGS: The liver demonstrates increased echotexture without focal mass lesions. The liver measures 15 cm. There is no intrahepatic or extrahepatic ductal dilatation. The common duct measures 4 mm. Gallstones. The gallbladder wall measures 2 mm and is within normal limits. The right kidney measures 10 cm. The right kidney is normal in contour, size, and shape. The echoge nicity is normal. There is no hydronephrosis. The pancreas is not well visualized due to overlying bowel gas. IMPRESSION: Cholelithiasis without sonographic evidence of acute cholecystitis. Hepatic steatosis.
[2025-05-20] MEDS: HYDROcodone-ACET 5/325MG TAB PO PRN (08:48)
--- NOTE | 2025-05-20 09:39 | DVH ---
CHEST RADIOGRAPH Indication: Pre-Op, pain Technique: Single frontal view of the chest was obtained Comparison: None FINDINGS: Lines and Tubes: None Lungs: No focal consolidation. Pleura: No effusion. No pneumothorax. Cardiomediastinal contours: Unremarkable Bones: No acute osseous abnormality. IMPRESSION: No acute cardiopulmonary disease.
[2025-05-20 10:37] LABS: INR 0.99 (0.9-1.15); Partial Thromboplastin Time 26.5 SEC (24.5-34.5); Prothrombin Time 10.5 sec (9.3-11.8)
[2025-05-20] MEDS: MORPHINE SULFATE INJ 2 MG/ml SYRG IV PRN (19:59)
[2025-05-20 20:00] VITALS: O2SAT 95
[2025-05-20 21:00] VITALS: BP 119/58; PULSE 74; RESP 20; TEMP 99.4; O2SAT 96
[2025-05-21] VITALS (9 sets, daily range): BP systolic 110–125; BP diastolic 56–74; PULSE 64–79; RESP 14–22; TEMP 97.7–98.3; O2SAT 93–98
[2025-05-21 06:25] LABS: Urine Budding Yeast OCCASIONAL /hpf (None Seen); Urine Protein, UAD Negative (Negative)
[2025-05-21 06:42] LABS: Hematocrit 38.8 % (36.0-46.0); Hemoglobin 13.3 g/dL (12.2-16.2); Mean Corpuscular Hemoglobin 30.0 pg (28.0-32.0); Mean Corpuscular Volume 87.5 fL (80.0-100.0); Nucleated Red Blood Cells % 0.0 %
[2025-05-21 07:07] LABS: Alanine Aminotransferase 45 U/L (7-40); Albumin 3.9 g/dL (3.2-4.8); Alkaline Phosphatase 85 U/L (46-116); Anion Gap 11 (5-15); BUN/Creatinine Ratio 9.2 (10.0-20.0); Bilirubin, Total 1.2 mg/dL (0.2-1.0); Blood Urea Nitrogen 6 mg/dL (9-23); Calcium 8.7 mg/dL (8.7-10.4); Carbon Dioxide 24 mmol/L (20-31); Chloride 105 mmol/L (98-107); Glucose 105 mg/dL (74-106); Potassium 3.4 mmol/L (3.5-5.1); Sodium 140 mmol/L (136-145); Total Protein 6.5 g/dL (5.7-8.2)
--- NOTE | 2025-05-21 11:55 | DVHPN2 ---
Subjective The patient is seen and examined at bedside. The patient complained of abdominal pain still. The patient is NPO. Waiting for surgery. Reviewed: Care Plan, H&P, Labs, Medications, Previous Orders, Radiology Changes from previous H/P or p: No Changes Eyes: No Pain, No Vision change, No Conjunctivae inflammation, No Eyelid inflammation, No Other, No Redness ENT: No Ear pain, No Ear discharge, No Nose pain, No Nose discharge, No Nose congestion, No Mouth pain, No Mouth swelling, No Throat pain, No Throat swelling, No Other Cardiovascular: No Chest Pain, No Palpitations, No Orthopnea, No Paroxysmal Noc. Dyspnea, No Edema, No Lt Headedness, No Other Respiratory: No Cough, No Dry, No Shortness of breath, No SOB with excertion, No Wheezing, No Hemoptysis, No Pleuritic Pain, No Sputum, No Other Gastrointestinal: Nausea, Vomiting, Abdominal Pain; No Diarrhea, No Constipation, No Melena, No Hematochezia, No Other Genitourinary: No Dysuria, No Frequency, No Incontinence, No Hematuria, No Retention, No Other Musculoskeletal: No other, No neck pain, No shoulder pain, No arm pain, No back pain, No hand pain, No leg pain, No foot pain Skin: No Rash, No Lesions, No Jaundice, No Bruising, No Other Objective Vitals Vital Signs Date Time Temp Pulse Resp B/P (MAP) Pulse Ox O2 Delivery O2 Flow Rate FiO2 05/21/25 09:18 97.8 75 18 112/68 (83) 96 97.8 05/21/25 08:00 Room Air* 0 21 Intake/Output Intake and Output 05/21/25 07:00 Intake Total 1000 ml Balance 1000 ml Intake Oral 0 ml IV Total 1000 ml # Voids 2 General Appearance: Alert, Oriented X3, Cooperative, No acute distress HEENT: Atraumatic, PERRLA, EOMI, Mucous membr. moist/pink Neck: Supple Lungs: Clear to auscultation, Normal air movement Cardiovascular: Regular rate, Normal S1, Normal S2, No murmurs, Gallops, Rubs Abdomen: Normal bowel sounds, Soft, Other (Diffuse tenderness on four quadrant) Neuro: Cranial nerves 3-12 NL Psych/Mental Status: Mental status NL Medications Current Medications Medications Dose Ordered Sig/Stefani Route Start Time Stop Time Status Last Admin Dose Admin Sodium Chloride 1,000 ml @ 100 mls/hr Q10H IV 05/20/25 08:00 05/21/25 05:00 100 MLS/HR Acetaminophen/ Hydrocodone Bitart 1 tab Q4HP PRN PO 05/20/25 08:00 05/20/25 08:48 1 TAB Ondansetron HCl 4 mg Q4HP PRN IV 05/20/25 08:00 Docusate Sodium 100 mg BIDPRN PRN PO 05/20/25 08:00 Acetaminophen 650 mg Q6HP PRN PO 05/20/25 08:00 Morphine Sulfate 2 mg Q4HPRN PRN IV 05/20/25 08:00 05/20/25 19:59 2 MG Laboratory Results Laboratory Tests 05/21/25 06:08 Chemistry Test 05/21/25 06:08 Albumin 3.9 g/dL (3.2-4.8) Calcium Level 8.7 mg/dL (8.7-10.4) Total Protein 6.5 g/dL (5.7-8.2) LFT Test 05/21/25 06:08 Alanine Aminotransferase (ALT) 45 U/L (7-40) H Alkaline Phosphatase 85 U/L (46-116) Aspartate Amino Transferase (AST) 45 U/L (13-40) H Total Bilirubin 1.2 mg/dL (0.2-1.0) H Urinalysis Test 05/21/25 04:40 Urine Color Light-yellow (Yellow) Urine Clarity Hazy (Clear) H Urine pH 6.5 (5.0-9.0) Urine Specific [place] 1.014 (1.001-1.035) Urine Protein Negative (Negative) Urine Ketones Negative (Negative) Urine Blood Negative /uL (Negative) Urine Nitrite Negative (Negative) Urine Bilirubin Negative (Negative) Urine Urobilinogen Normal mg/dL (Negative) Urine Leukocyte Esterase Negative /uL (Negative) Urine RBC 2 /hpf (0 - 4) Urine Microscopic WBC 4 /HPF (0-5) Urine Squamous Epithelial Cells Few /hpf (<5) Urine Bacteria Few /hpf (None Seen) H Urine Yeast (Budding) Occasional /hpf (None Urine Glucose Normal mg/dL (Normal) Labs and/or images reviewed: Labs reviewed by me Assessment/Plan Assessment/Plan Biliary colic symptom, Intractable abdominal pain, Intractable nausea and vomiting, Hyperglycemia, Pre-Diabetes, Continuing current management. Ultrasound of gallbladder showed cholelithiasis. Patient is still have biliary colic. Waiting for cholecystectomy. Continuing with Zofran. Continuing with pain medication Advised to cut down carbohydrates food and avoid sugar, ice cream etc. for prevent diabetes This medical document was created using an electronic medical record system with [employer] direct computerized dictation system. Although this document has been carefully reviewed, there may still be some phonetic and typographical errors. These areas are purely typographical due to imperfections of the software programs, and do not reflect any compromise in the patient's medical care. Plan discussed with: Patient Date of Service: May 21, 2025 Billing Provider: ROBERTA BOX MD Common Visit Codes: [id number] INP/OBS CARE(HIGH) ROBERTA BOX MD May 21, 2025 11:55
[2025-05-21] MEDS ORDERED: fentaNYL CITRATE 100 MCG/2 ML VL ONE (13:36)
[2025-05-21] MEDS ORDERED: MIDAZOLAM HCL 2MG/2ML 2ml VIAL (1mg/ml) ONE (13:36)
[2025-05-21] MEDS ORDERED: PROPOFOL 10 MG/ML 20 ML IV ONE (13:37)
[2025-05-21] MEDS: ceFAZolin 2 GM/D5W50ml 50 ML IV ONE (14:00)
[2025-05-21] MEDS: BUPIVACAINE 0.5% P/F INJ 10 ML VIAL ONE (14:13)
[2025-05-21] MEDS: LIDOCAINE W/ EPINEPHRINE 1% 20ML VIAL ONE (14:13)
[2025-05-21] MEDS ORDERED: MIDAZOLAM HCL 2MG/2ML 2ml VIAL (1mg/ml) IV PRN (14:30)
[2025-05-21] MEDS ORDERED: MORPHINE SULFATE 4 MG/ML SYR/VIAL IV PRN (14:30)
[2025-05-21] MEDS ORDERED: hydrALAZINE HCL 20 MG/ML VL IV PRN (14:30)
[2025-05-21] MEDS ORDERED: ONDANSETRON HCL 4 MG/2 ML VIAL IV PRN (14:30)
[2025-05-21] MEDS ORDERED: SUGAMMADEX 200mg/2ml Vial (100MG/ML) IV ONE (14:39)
--- NOTE | 2025-05-21 15:10 | DVHOP ---
DATE OF SURGERY: 05/21/2025 PREOPERATIVE DIAGNOSES: * Cholelithiasis. * Cholecystitis. POSTOPERATIVE DIAGNOSES: * Cholelithiasis. * Cholecystitis. SURGEON: Sherif Underwood MD [employer] ATTENDANT: Asim Parra NP ANESTHESIA: General endotracheal, Dr. Can. PROCEDURES: * Laparoscopy. * Laparoscopic cholecystectomy. DESCRIPTION OF PROCEDURE: Under general endotracheal anesthesia with the patient's skin prepped and draped, supraumbilical incision was made and Veress needle inserted into the peritoneal cavity by the hanging drop technique in order to establish pneumoperitoneum to 15 mmHg pressure by insufflation with carbon dioxide. With the abdomen fully distended, the needle was removed and replaced with a 5 mm trocar port through which a 0-degree viewing laparoscope was inserted and under direct vision 5 and 10 mm ports inserted through the anterior axillary line on the right and a subxiphoid midline skin respectively. Instrumentation was then introduced and laparoscopy was performed revealing no obvious unexpected pathology. The gallbladder was acutely inflamed and distended. It was aspirated of inspissated bile which was sent for cultures and sensitivities. The gallbladder was then placed on tension. The cystic duct was exceedingly short and emanated from a normal size common duct which was very close to the edge of the liver. The cystic duct was circumferentially dissected and traced into the hepatocystic triangle so as to minimize the potential for inadvertent injury to the common bile duct. Subsequently, the cystic artery was similarly dissected. Both structures were skeletonized and traced into the hepatocystic triangle so as to minimize the potential for inadvertent injury to the common bile duct and these structures were divided between metallic clips placed as far away from the common duct as possible. Subsequently, the gallbladder was resected from its liver bed. The gallbladder was intrahepatic in nature and resulted in some denuding of the liver bed of the gallbladder for which reason introducing a 10 mm Juanpablo-Payne drain and exteriorizing it through the 5 mm trocar port site on the right flank, securing with a 2-0 nylon suture. Following assurance of complete hemostasis in the gallbladder bed as well as the port sites, instrumentation was withdrawn. The abdomen was desufflated. The wounds approximated using Monocryl sutures, Dermabond glue, and Steri-Strips. The patient remained stable throughout the procedure and left the operating room following an accurate needle and sponge count. Her daughter, Radha, was thoroughly informed at [phone]. MD LAUREN Luna/SEPIDEH/LUDIVINA TID: [id number] RECEIPT: [id number]
[2025-05-21] MEDS: HYDROmorphone HCL 2 MG/ML VL/or syr IV PRN (15:13)
[2025-05-22] VITALS (7 sets, daily range): BP systolic 107–122; BP diastolic 59–76; PULSE 56–78; RESP 15–18; TEMP 97.7–98.7; O2SAT 93–98
--- NOTE | 2025-05-22 08:25 | DVHPN2 ---
Subjective Date Seen: May 22, 2025 Post op day Post op day: 1 Patient reports: No new complaints Nursing reports: No new complaints General: Normal HNT: Normal Cardiovascular: Normal Respiratory: Normal Gastrointestinal: Normal Genitourinary: Normal Musculoskeletal: Normal Neurological: Normal Objective Vitals Vital Sign Date Time Temp Pulse Resp B/P (MAP) Pulse Ox O2 Delivery O2 Flow Rate FiO2 05/22/25 05:00 98.2 62 18 118/64 (82) 93 98.2 05/21/25 20:00 Room Air* 0 21 Total Intake and Output 05/21/25 05/21/25 05/22/25 15:00 23:00 07:00 Intake Total 100 ml 1000 ml 0 ml Balance 100 ml 1000 ml 0 ml Medications Current Medications Medications Dose Ordered Sig/Stefani Route Start Time Stop Time Status Last Admin Dose Admin Sodium Chloride 1,000 ml @ 100 mls/hr Q10H IV 05/20/25 08:00 05/21/25 21:55 100 MLS/HR Acetaminophen/ Hydrocodone Bitart 1 tab Q4HP PRN PO 05/20/25 08:00 05/22/25 06:41 1 TAB Ondansetron HCl 4 mg Q4HP PRN IV 05/20/25 08:00 Docusate Sodium 100 mg BIDPRN PRN PO 05/20/25 08:00 Acetaminophen 650 mg Q6HP PRN PO 05/20/25 08:00 Morphine Sulfate 2 mg Q4HPRN PRN IV 05/20/25 08:00 05/20/25 19:59 2 MG General: Normal, Well developed Head/Eyes: Normal ENT: Normal Neck: Normal, Supple Lungs: Normal, Normal inspection Cardiovascular: Normal, Regular rate and rhythm Abdominal: Normal, Soft Extremities: Normal, No clubbing Labs and Microbiology Laboratory Tests 05/21/25 06:08 Test 05/21/25 06:08 Range/Units Serum Glucose 105 74-106 mg/dL Ass/Plan Labs and/or images reviewed: Labs reviewed by me Assessment/Plan no new complaints abdomen soft, non distended , appropriately tender wound clean dry and intact denies nausea or vomiting has not passed gas, no BM minimal BERNY serous fluid labs pending reviewed notes Plan: continue current treatment patient to ambulate Prognosis: Good Plan discussed with patient, Dr. Underwood Visit Coding Surgery Date of Service if different f: May 22, 2025 Billing Provider: KULDIP UNDERWOOD MD Surgery Visit Codes: [id number] INP/OBS CARE(HIGH) PIPE DELEON NP May 22, 2025 08:25
[2025-05-22 08:57] LABS: Hematocrit 38.4 % (36.0-46.0); Hemoglobin 12.8 g/dL (12.2-16.2); Mean Corpuscular Hemoglobin 29.6 pg (28.0-32.0); Mean Corpuscular Volume 88.4 fL (80.0-100.0); Nucleated Red Blood Cells % 0.1 %
--- NOTE | 2025-05-22 12:00 | DVHPN2 ---
Subjective The patient is seen and examined at bedside. The patient complained of abdominal pain still. The patient is still NPO. Reviewed: Care Plan, H&P, Labs, Medications, Previous Orders, Radiology Changes from previous H/P or p: No Changes Eyes: No Pain, No Vision change, No Conjunctivae inflammation, No Eyelid inflammation, No Other, No Redness ENT: No Ear pain, No Ear discharge, No Nose pain, No Nose discharge, No Nose congestion, No Mouth pain, No Mouth swelling, No Throat pain, No Throat swelling, No Other Cardiovascular: No Chest Pain, No Palpitations, No Orthopnea, No Paroxysmal Noc. Dyspnea, No Edema, No Lt Headedness, No Other Respiratory: No Cough, No Dry, No Shortness of breath, No SOB with excertion, No Wheezing, No Hemoptysis, No Pleuritic Pain, No Sputum, No Other Gastrointestinal: Nausea, Vomiting, Abdominal Pain; No Diarrhea, No Constipation, No Melena, No Hematochezia, No Other Genitourinary: No Dysuria, No Frequency, No Incontinence, No Hematuria, No Retention, No Other Musculoskeletal: No other, No neck pain, No shoulder pain, No arm pain, No back pain, No hand pain, No leg pain, No foot pain Skin: No Rash, No Lesions, No Jaundice, No Bruising, No Other Objective Vitals Vital Signs Date Time Temp Pulse Resp B/P (MAP) Pulse Ox O2 Delivery O2 Flow Rate FiO2 05/22/25 09:15 97.7 59 17 107/61 (76) 96 97.7 05/22/25 08:00 Room Air* 0 21 Intake/Output Intake and Output 05/22/25 07:00 Intake Total 1100 ml Balance 1100 ml Intake Oral 0 ml IV Total 1100 ml # Voids 5 General Appearance: Alert, Oriented X3, Cooperative, No acute distress HEENT: Atraumatic, PERRLA, EOMI, Mucous membr. moist/pink Neck: Supple Lungs: Clear to auscultation, Normal air movement Cardiovascular: Regular rate, Normal S1, Normal S2, No murmurs, Gallops, Rubs Abdomen: Normal bowel sounds, Soft, Other (Diffuse tenderness on four quadrant) Neuro: Cranial nerves 3-12 NL Psych/Mental Status: Mental status NL Medications Current Medications Medications Dose Ordered Sig/Stefani Route Start Time Stop Time Status Last Admin Dose Admin Sodium Chloride 1,000 ml @ 100 mls/hr Q10H IV 05/20/25 08:00 05/22/25 10:56 100 MLS/HR Acetaminophen/ Hydrocodone Bitart 1 tab Q4HP PRN PO 05/20/25 08:00 05/22/25 06:41 1 TAB Ondansetron HCl 4 mg Q4HP PRN IV 05/20/25 08:00 Docusate Sodium 100 mg BIDPRN PRN PO 05/20/25 08:00 Acetaminophen 650 mg Q6HP PRN PO 05/20/25 08:00 Morphine Sulfate 2 mg Q4HPRN PRN IV 05/20/25 08:00 05/20/25 19:59 2 MG Laboratory Results Laboratory Tests 05/21/25 06:08 05/22/25 08:04 LFT Test 05/22/25 08:04 Total Bilirubin 0.8 mg/dL (0.2-1.0) Urinalysis Test 05/21/25 04:40 Urine Color Light-yellow (Yellow) Urine Clarity Hazy (Clear) H Urine pH 6.5 (5.0-9.0) Urine Specific [place] 1.014 (1.001-1.035) Urine Protein Negative (Negative) Urine Ketones Negative (Negative) Urine Blood Negative /uL (Negative) Urine Nitrite Negative (Negative) Urine Bilirubin Negative (Negative) Urine Urobilinogen Normal mg/dL (Negative) Urine Leukocyte Esterase Negative /uL (Negative) Urine RBC 2 /hpf (0 - 4) Urine Microscopic WBC 4 /HPF (0-5) Urine Squamous Epithelial Cells Few /hpf (<5) Urine Bacteria Few /hpf (None Seen) H Urine Yeast (Budding) Occasional /hpf (None Urine Glucose Normal mg/dL (Normal) Labs and/or images reviewed: Labs reviewed by me Assessment/Plan Assessment/Plan Biliary colic symptom, Intractable abdominal pain, Intractable nausea and vomiting, Hyperglycemia, Pre-Diabetes, Continuing current management. Ultrasound of gallbladder showed cholelithiasis. Patient is still have biliary colic. Waiting for cholecystectomy. Continuing with Zofran. Continuing with pain medication Advised to cut down carbohydrates food and avoid sugar, ice cream etc. for prevent diabetes 05/22 The patient is status post post one op day number 1 Encouraged the patient to be out of bed and ambulate. Continuing IV antibiotic. Diet advanced per surgeon. This medical document was created using an electronic medical record system with [employer] direct computerized dictation system. Although this document has been carefully reviewed, there may still be some phonetic and typographical errors. These areas are purely typographical due to imperfections of the software programs, and do not reflect any compromise in the patient's medical care. Plan discussed with: Patient Date of Service: May 22, 2025 Billing Provider: ROBERTA BOX MD Common Visit Codes: [id number] INP/OBS CARE(HIGH) ROBERTA BOX MD May 22, 2025 12:00
[2025-05-23 01:00] VITALS: BP 101/59; PULSE 52; RESP 19; TEMP 98.3; O2SAT 95
[2025-05-23 05:00] VITALS: BP 114/65; PULSE 53; RESP 18; TEMP 98; O2SAT 95
[2025-05-23 09:00] VITALS: BP 125/64; PULSE 53; RESP 20; TEMP 97.4; O2SAT 96
--- NOTE | 2025-05-23 10:44 | DVHPN2 ---
Subjective Date Seen: May 23, 2025 Post op day Post op day: 2 Patient reports: No new complaints Nursing reports: No new complaints General: Normal HNT: Normal Cardiovascular: Normal Respiratory: Normal Gastrointestinal: Normal Genitourinary: Normal Musculoskeletal: Normal Neurological: Normal Objective Vitals Vital Sign Date Time Temp Pulse Resp B/P (MAP) Pulse Ox O2 Delivery O2 Flow Rate FiO2 05/23/25 09:00 97.4 53 20 125/64 (84) 96 97.4 05/23/25 08:00 Room Air* 0 21 Total Intake and Output 05/22/25 05/22/25 05/23/25 15:00 23:00 07:00 Intake Total 1200 ml 640 ml Output Total 50 ml Balance 1200 ml 590 ml Medications Current Medications Medications Dose Ordered Sig/Stefani Route Start Time Stop Time Status Last Admin Dose Admin Sodium Chloride 1,000 ml @ 100 mls/hr Q10H IV 05/20/25 08:00 05/23/25 06:16 100 MLS/HR Acetaminophen/ Hydrocodone Bitart 1 tab Q4HP PRN PO 05/20/25 08:00 05/22/25 21:50 1 TAB Ondansetron HCl 4 mg Q4HP PRN IV 05/20/25 08:00 Docusate Sodium 100 mg BIDPRN PRN PO 05/20/25 08:00 Acetaminophen 650 mg Q6HP PRN PO 05/20/25 08:00 Morphine Sulfate 2 mg Q4HPRN PRN IV 05/20/25 08:00 05/20/25 19:59 2 MG General: Normal, Well developed Head/Eyes: Normal ENT: Normal Neck: Normal, Supple Lungs: Normal, Normal inspection Cardiovascular: Normal, Regular rate and rhythm Abdominal: Normal, Soft Extremities: Normal, No clubbing Labs and Microbiology Laboratory Tests 05/22/25 08:04 05/21/25 06:08 Test 05/21/25 06:08 Range/Units Serum Glucose 105 74-106 mg/dL Ass/Plan Labs and/or images reviewed: Labs reviewed by me, Image(s) reviewed by me Assessment/Plan no new complaints abdomen soft, non distended , appropriately tender wound clean dry and intact denies nausea or vomiting has not passed gas, no BM minimal BERNY serous fluid labs pending reviewed notes Plan: continue current treatment patient to ambulate 09/06/25 s/p laparoscopic cholecystectomy no new complaints abdomen soft, non distended , appropriately tender wound clean dry and intact denies nausea or vomiting passed gas, BM minimal BERNY serous fluid notes reviewed Plan: ok to discharge per surgery point of view follow up in 7-10 days for BERNY drain removal in general surgery clinic may shower in 48 hours Prognosis: Good Plan discussed with patient , Dr. Underwood Visit Coding Surgery Date of Service if different f: May 23, 2025 Billing Provider: KULDIP UNDERWOOD MD Surgery Visit Codes: [id number] INP/OBS CARE(HIGH) PIPE DELEON NP May 23, 2025 10:44
[2025-05-23 13:00] VITALS: BP 124/72; PULSE 58; RESP 20; TEMP 97; O2SAT 95
--- NOTE | 2025-05-23 15:43 | DVHDS2 ---
Discharge Summary Date of Admission May 20, 2025 at 07:57 Date of Discharge: May 23, 2025 Admitting Diagnosis Biliary colic symptom, Intractable abdominal pain, Intractable nausea and vomiting, Hyperglycemia, Pre-Diabetes, Labs/Diagnostic Data: Laboratory Results Test 05/22/25 08:04 05/21/25 06:08 05/21/25 04:40 05/20/25 10:03 White Blood Count 11.9 10^3/uL (4.4-10.8) Red Blood Count 4.34 10^6/uL (4.0-5.20) Hemoglobin 12.8 g/dL (12.2-16.2) Hematocrit 38.4 % (36.0-46.0) Mean Corpuscular Volume 88.4 fL (80.0-100.0) Mean Corpuscular Hemoglobin 29.6 pg (28.0-32.0) Mean Corpuscular Hemoglobin Concent 33.4 g/dL (32.0-36.0) Red Cell Distribution Width 13.3 % (11.8-14.3) Platelet Count 219 10^3/uL (140-450) Mean Platelet Volume 8.0 fL (6.9-10.8) Neutrophils (%) (Auto) 86.2 % (37.0-80.0) Lymphocytes (%) (Auto) 10.4 % (10.0-50.0) Monocytes (%) (Auto) 3.0 % (0.0-12.0) Eosinophils (%) (Auto) 0.0 % (0.0-7.0) Basophils (%) (Auto) 0.4 % (0.0-2.0) Neutrophils # (Auto) 10.3 10 ^3/uL (1.6-8.6) Lymphocytes # (Auto) 1.2 10 ^3/uL (0.4-5.4) Monocytes # (Auto) 0.4 10 ^3/uL (0-1.3) Eosinophils # (Auto) 0 10 ^3/uL (0-0.8) Basophils # (Auto) 0 10 ^3/uL (0-0.2) Nucleated Red Blood Cells 0.1 % Total Bilirubin 0.8 mg/dL (0.2-1.0) Sodium Level 140 mmol/L (136-145) Potassium Level 3.4 mmol/L (3.5-5.1) Chloride Level 105 mmol/L (98-107) Carbon Dioxide Level 24 mmol/L (20-31) Anion Gap 11 (5-15) Blood Urea Nitrogen 6 mg/dL (9-23) Creatinine 0.65 mg/dL (0.550-1.02) Glomerular Filtration Rate Calc 103 mL/min (>90) BUN/Creatinine Ratio 9.2 (10.0-20.0) Serum Glucose 105 mg/dL (74-106) Calcium Level 8.7 mg/dL (8.7-10.4) Aspartate Amino Transferase (AST) 45 U/L (13-40) Alanine Aminotransferase (ALT) 45 U/L (7-40) Alkaline Phosphatase 85 U/L (46-116) Total Protein 6.5 g/dL (5.7-8.2) Albumin 3.9 g/dL (3.2-4.8) Urine Color Light-yellow (Yellow) Urine Clarity Hazy (Clear) Urine pH 6.5 (5.0-9.0) Urine Specific [place] 1.014 (1.001-1.035) Urine Protein Negative (Negative) Urine Ketones Negative (Negative) Urine Blood Negative /uL (Negative) Urine Nitrite Negative (Negative) Urine Bilirubin Negative (Negative) Urine Urobilinogen Normal mg/dL (Negative) Urine Leukocyte Esterase Negative /uL (Negative) Urine RBC 2 /hpf (0 - 4) Urine Microscopic WBC 4 /HPF (0-5) Urine Squamous Epithelial Cells Few /hpf (<5) Urine Bacteria Few /hpf (None Seen) Urine Yeast (Budding) Occasional /hpf (None Urine Glucose Normal mg/dL (Normal) Prothrombin Time 10.5 sec (9.3-11.8) Prothrombin Time INR 0.99 (0.9-1.15) Activated Partial Thromboplast Time 26.5 SEC (24.5-34.5) Test 05/20/25 01:27 Hemoglobin A1c 5.8 % A1C (<5.7) Lipase 40 U/L (12-53) Other Laboratory Tests 05/22/25 08:04 05/21/25 06:08 Brief Hx & Hospital Course: This is a 54 years old female with past medical history of gallstone, cholelithiasis come to emergency department because severe abdominal pain. The patient supposed to have a cholecystectomy done schedule on 06/05/2025. However she has intractable pain unrelieved with [id number] pain medication and also nausea and vomiting. Her pain is at right upper quadrant. The patient was admitted. CT scan abdomen pelvis showed Acute enterocolitis. Hepatic steatosis. Slightly distended gallbladder without inflammatory changes. Right upper quadrant ultrasound recommended for further evaluation. Ultrasound right upper quadrant showed cholelithiasis without evidence of cholecystitis. However the patient continuing to have severe pain with nausea and vomiting. Surgeon see the patient and recommend surgery. The patient is with subsequently had surgery done which showed Cholecystitis . The patient recover well after surgery. Nausea and vomiting improved. Patient tolerated diet. I am going to discharge her home today. Advised her to follow up with primary care physician 1-2 weeks. Follow up with surgeon per schedule for postop follow up. Advised her do not lift anything more than 10 lb for two weeks. Activity as tolerated. Diet per home diet. Physical exam: HEENT: Normocephalic atraumatic pupils equal react to light and accommodation. Extraocular muscles intact, conjunctiva pink, oropharynx moist, no thrush, no exudate. Lymphatic: No lymphadenopathy Cardiovascular exam: S1, S2 was heard. No murmurs, rubs, gallops Lung: Clear on auscultation bilaterally, no wheeze, rale, rhonchi. GI: Abdominal soft, nondistended, nontenderness, positive bowel sounds. Extremity: No crepitus, cyanosis, edema. Pedal pulses present bilateral. Full range of motion. Skin: Normal turgor, no rash. Psych: Alert, oriented x3. Neurology: No focal deficits, cranial nerve II to XII grossly intact. This medical document was created using an electronic medical record system with [employer] direct computerized dictation system. Although this document has been carefully reviewed, there may still be some phonetic and typographical errors. These areas are purely typographical due to imperfections of the software programs, and do not reflect any compromise in the patient's medical care. Condition at Discharge: Stable Final Diagnosis/Problems List Biliary colic symptom, Cholelithiasis Cholecystitis Intractable abdominal pain, Intractable nausea and vomiting, Hyperglycemia, Pre-Diabetes, Discharge Disposition: Home Discharge Instruct/Medications Scheduled Levofloxacin Hemihydrate (Levaquin 500 Mg), 1 TAB PO DAILY Metoclopramide Hcl (Reglan), 10 MG PO BID Omeprazole (Gnp Omeprazole), 1 TAB PO BID Scheduled PRN Hydrocodone-Acetaminophen (Hydrocodone Bitartrate/AC 5-325 mg), 1 TAB PO Q4HP PRN Discharge Statement: "Patient was advised to return to the ER or call 911 if any headaches, dizziness, shortness of breath, chest pain, abdominal pain, bleeding, fevers, or worsening of medical condition. Patient was counseled about treatment plan, medications, possible side effects, patientverbalized understanding. All questions were answered to the best of my ability. This discharge took greater then 30 minutes in planning, reviewing documentation, counseling the patient, and discussing with other team members." ASSESSMENT ASSESSMENT Assessment Date of Service: May 23, 2025 Billing Provider: ROBERTA BOX MD Common Visit Codes: 75738-BDC/OBS DISCH DAY >30min ROBERTA BOX MD May 23, 2025 15:43
[2025-05-23] MEDS ORDERED: METO-281 PO (15:44)
[2025-05-23] MEDS ORDERED: LEVO500T91 PO (15:44)
[2025-05-23] MEDS ORDERED: HYDR-4902 PO (15:44)
[2025-05-23 16:20] VITALS: BP 125/64; PULSE 53; RESP 20; TEMP 36.1; O2SAT 96
[2025-05-23] MEDS ORDERED: PHENYLEPHRINE HCL 10 MG/ML VL IV ONE (17:49)
== END 2025-05-23 17:50 | disposition home or self-care (01) | DRG 263 ==
LOC: ER 01:02 → OVERFLOW 07:57 → WEST WING 17:32
PROVIDERS: ADMIT Internal Medicine; ATTEND Internal Medicine
PROC: 0FT44ZZ Resection of Gallbladder, Percutaneous Endoscopic Approach (ICD-10-PCS; principal; 2025-05-21 13:57)
DX: K80.62 Calculus of gallbladder and bile duct with acute cholecystitis without obstruction (principal); R71.0 Precipitous drop in hematocrit; A08.4 Viral intestinal infection, unspecified; R73.03 Prediabetes; R73.9 Hyperglycemia, unspecified; K76.0 Fatty (change of) liver, not elsewhere classified; K82.8 Other specified diseases of gallbladder; Z90.710 Acquired absence of both cervix and uterus; Z79.899 Other long term (current) drug therapy
CPT/HCPCS: 36415; 71045; 74177; 76705; 80053; 81001; 82247; 83036; 83690; 85025; 85610; 85730; 86850; 86900; 86901; 87070; 87075; 87205; 96374; 96375; 99291; G0378; J1100; J2250; J2405; J2704; J3490